=== PATIENT | female | born 1955 | race Caucasian/White ===

== ENCOUNTER 2018-06-21 10:09 | Outpatient (CLI) | payer OTHER, SELFPAY ==
[2018-06-21 11:58] LABS: Cholesterol 203 mg/dL (50-200); Glucose 86 mg/dL (70-100); HDL Cholesterol 51 mg/dL (40-60); LDL CHOLESTEROL 132 mg/dL (<100); Triglyceride 77 mg/dL (30-150)
== END 2018-06-21 10:29 ==
PROVIDERS: PCP Nurse Practitioner Family; Visit Provider Nurse Practitioner Family
DX: Z00.00 Encounter for general adult medical examination without abnormal findings (principal); Z13.1 Encounter for screening for diabetes mellitus; Z13.220 Encounter for screening for lipoid disorders
CPT/HCPCS: 36415; 80061; 82947; 83721

== ENCOUNTER 2018-07-11 12:00 | Outpatient (CLI) | payer OTHER, SELFPAY ==
--- NOTE | 2018-07-11 11:50 | DI.MAMMO_ITS ---
SYMPTOMS/DIAGNOSIS: SCREENING, Z12.31 MAMMOGRAMS: Mammograms were interpreted according to the usual protocol including computer analysis with CAD system, tomosynthesis and C view imaging. The breast tissue is of moderate radiodensity. There is no dominant mass. There are no suspicious calcifications. There has been no significant interval change when compared with prior images and there is no evidence of malignancy. SUMMARY: No evidence of malignancy, category 1. Yearly screening mammography is recommended. Breast density category B. SA ASSESSMENT OF FINDINGS: Negative. Category 1. Patient will receive a letter notifying them of these results. BI-RADS category B. There are scattered areas of fibroglandular density.
== END 2018-07-11 12:20 ==
PROVIDERS: PCP Nurse Practitioner Family; Visit Provider Nurse Practitioner Family
DX: Z12.31 Encounter for screening mammogram for malignant neoplasm of breast (principal)
CPT/HCPCS: 77063; 77067

== ENCOUNTER 2019-06-27 09:20 | Outpatient (REF) | payer OTHER, SELFPAY ==
--- NOTE | 2019-06-27 08:30 | PAPFT_PTH ---
PATIENT: Hannah Archibald LOC: [facility]#:[id number] AGE/SX: 64/F ROOM: RE06/27/[address]: Soham Marie : 1955 BED: DIS: 06/27/2019 SPEC #: [id number] RECD: 06/27/19 13:00 STATUS: DANIA RESong #: [id number] FRANCHESCA: 06/27/19 08:[address]: Soham Marie DEPT: [facility] Cytology RECD BY: Sarai Yeh ENTERED: 06/27/19 13:01 SP TYPE: PAPFT OTHR DR: Margoth Mario Tissues: 1 - CX/ENDOCX FOR PAP SMEARS Procedures: PAP THIN PREP/UVM Screening HPV DNA PROBE Comments: [id number]
== END 2019-06-27 09:40 ==
LOC: NCHCN 09:20
PROVIDERS: PCP Nurse Practitioner Family; Visit Provider Nurse Practitioner Family
DX: Z12.4 Encounter for screening for malignant neoplasm of cervix (principal); Z11.51 Encounter for screening for human papillomavirus (HPV); Z00.00 Encounter for general adult medical examination without abnormal findings
CPT/HCPCS: 88142; 87624

== ENCOUNTER 2020-01-16 03:10 | Outpatient (CLI) | payer OTHER, SELFPAY ==
[2020-01-19 19:06] LABS: Patient Race White; SARS-CoV-2 RNA Undetected (Undetected); SARS-CoV-2 Specimen Source Nasal
== END 2020-01-16 03:30 ==
PROVIDERS: PCP Nurse Practitioner Family; Visit Provider Nurse Practitioner Family
DX: Z11.59 Encounter for screening for other viral diseases (principal)
CPT/HCPCS: U0003

== ENCOUNTER 2020-06-28 14:49 | Outpatient (REF) | payer OTHER, SELFPAY ==
[2020-06-28 16:45] LABS: HCT 45.2 % (36.0-46.0); HGB 14.8 g/dL (11.2-15.7); MCH 30.7 pg (27.0-33.0); MCHC 32.7 % (32.0-36.0); MCV 93.8 fL (80-95); Platelet Count 272 10^3/uL (130-400); RBC 4.82 10^6/uL (3.93-5.22); RDW 12.2 % (11.7-14.6); RDW-SD 42.4 fL; WBC 4.66 10^3/uL (4.4-10.8)
[2020-06-28 17:16] LABS: ALT 42 U/L (14-59); AST 25 U/L (15-37); Albumin 3.6 g/dL (3.4-5.0); Alkaline Phosphatase 105 U/L (46-116); Anion Gap 7.2 mmol/L (3-11); BUN 12 mg/dL (7-18); Bilirubin, Total 0.3 mg/dL (0.2-1.0); CO2 27.8 mmol/L (21.0-32.0); CREATININE 0.8 mg/dL (0.55-1.02); Calcium 10.2 mg/dL (8.5-10.1); Chloride 106 mmol/L (98-107); Glucose 97 mg/dL (74-106); Potassium 4.2 mmol/L (3.5-5.1); Sodium 141 mmol/L (136-145); Total Protein 7.6 g/dL (6.4-8.2)
[2020-07-01 10:22] LABS: HIV-1/2 Ag & Ab Screen Negative (Negative)
== END 2020-06-28 14:50 | disposition home or self-care (01) ==
LOC: NCHCN 14:49
PROVIDERS: PCP Nurse Practitioner Family; Visit Provider Nurse Practitioner Family
DX: Z13.1 Encounter for screening for diabetes mellitus (principal); Z13.0 Encounter for screening for diseases of the blood and blood-forming organs and certain disorders involving the immune mechanism; Z11.4 Encounter for screening for human immunodeficiency virus [HIV]; Z68.28 Body mass index [BMI] 28.0-28.9, adult
CPT/HCPCS: 80053; 85027; 87389

== ENCOUNTER 2020-07-26 02:14 | Outpatient (CLI) | payer OTHER, SELFPAY ==
--- NOTE | 2020-07-26 | DI.MAMMO_ITS ---
EXAM: MG MAMMO SCREENING CLINICAL HISTORY: SCREENING,. TECHNIQUE: Bilateral full field digital CC and MLO mammographic images were obtained with 3D tomosyn thesis and utilizing computer aided detection (CAD). COMPARISON: Prior mammograms dating back to 2010, the most recent being June 2018. FINDINGS: There are no CAD designations There are no new spiculated masses nor malignant appearing microcalcification groups. There is no significant architectural distortion nor skin thickening-retraction. IMPRESSION: No radiographic evidence of malignancy. BI-RADS Category 1 - Negative Breast Density - Category B - Scattered areas of fibroglandular density Breast density Category C or D implies that the patient has dense breast tissue. Dense breast tissue can make it harder to find cancer on a mammogram. Dense breast tissue is also associated with an incr eased risk of breast cancer. This information about the result of the mammogram report was provided to the patient to raise their awareness. Use this report when you speak with the patient about their risks for breast cancer, which includes their family history. At that time, you may recommend additional screening tests (Ultrasoun d or MRI) as these tests may add significant information. A negative radiographic report should not delay biopsy if a dominant or clinically suspicious mass is present. Up to ten percent of cancers are not identified on mammography. A negative report may reinforce clinical impression. Adenosis and dense breasts may obscure an underlying neoplasm. False positive reports average 6 to 10%. Patient will receive a letter notifying them of these results.
== END 2020-07-26 02:34 ==
PROVIDERS: PCP Nurse Practitioner Family; Visit Provider Nurse Practitioner Family
DX: Z12.31 Encounter for screening mammogram for malignant neoplasm of breast (principal)
CPT/HCPCS: 77063; 77067

== ENCOUNTER 2021-12-02 17:14 | Outpatient (REF) | payer SELFPAY ==
[2021-12-02 18:30] LABS: C Diff PCR Negative (Negative)
== END 2021-12-02 17:15 | disposition home or self-care (01) ==
LOC: LBN 17:14
PROVIDERS: PCP Nurse Practitioner Family; Visit Provider Physician Assistant Medical
DX: R19.7 Diarrhea, unspecified (principal)
CPT/HCPCS: 87493

== ENCOUNTER → 2023-05-08 03:10 | Outpatient (CLI) | payer MEDICARE, OTHER, SELFPAY ==
--- NOTE | 2023-05-08 | DI.MAMMO_ITS ---
Exam(s) MAMMO SCREENING EXAM: MAMMO SCREENING CLINICAL HISTORY: SCREENING, Z12.31 TECHNIQUE: Bilateral full field digital CC and MLO mammographic images were obtained with 3D tomosyn thesis and utilizing computer aided detection (CAD). COMPARISON: Available for comparison. FINDINGS: Masses/Architectural Distortion: None seen. Microcalcifications: No suspicious pleomorphic-type are seen. Skin Thickening/Nipple Retraction: None. IMPRESSION: 1. No significant interval change with no specific features of malignancy noted. 2. Unless there is more urgent need, screening mammography is recommended, as per [place] [employer] guidelines. BI-RADS Category 1 - Negative Breast Density - Category B - Scattered areas of fibroglandular density Breast density category C or D implies that the patient has dense breast tissue. Dense breast tissue is very common and is not abnormal but dense breast tissue can make it harder to find cancer on a ma mmogram. Also, dense breast tissue may increase their breast cancer risk. This information about the result of the mammogram report was provided to the patient to raise their awareness. Use this report when you speak with the patient about their risks for breast cancer, which includes their family hist ory. At that time, you may recommend for more screening tests (Ultrasound or MRI) as they might be us eful based on their risk. A negative radiographic report should not delay biopsy if a dominant or clinically suspicious mass is present. Up to ten percent of cancers are not identified on mammography. A negative report may reinforce clinical impression. Adenosis and dense breasts may obscure an underlying neoplasm. False positive reports average 6 to 10%. Patient will receive a letter notifying them of these results.
== END ==
PROVIDERS: PCP Nurse Practitioner Family; Visit Provider Nurse Practitioner Family
DX: Z12.31 Encounter for screening mammogram for malignant neoplasm of breast (principal)
CPT/HCPCS: 77063; 77067

== ENCOUNTER → 2023-05-24 14:35 | Outpatient (BNVA) | payer MEDICARE, OTHER, SELFPAY | PROVIDERS: PCP Nurse Practitioner Family; Referring Provider Nurse Practitioner Family; Visit Provider Surgery | DX: Z12.11 Encounter for screening for malignant neoplasm of colon (principal) ==

== ENCOUNTER 2023-06-13 07:44 | Day surgery (SDC) | payer MEDICARE, OTHER, SELFPAY ==
--- NOTE | 2023-06-13 06:24 | W.ANESPRE ---
General Info Date of Service Date Performed: 06/13/23 Height: 5 ft 1.5 in Weight: 75.296 kg Body Mass Index (BMI): 30.8 Surgical Procedure: Operation Date: 06/13/23 09:35 Proposed Procedure Side Surgeon p Colonoscopy Erik Renee MD Meds Allergies and Home Medications Allergies Allergy/AdvReac Type Severity Reaction Status Date / Time Environmental Allergy Intermediate Other (See Uncoded 06/13/23 08:05 Comment) Home Medication Medication Instructions Recorded cholecalciferol (vitamin D3) 25 25 mcg PO DAILY 05/09/23 mcg (1,000 unit) capsule bisacodyl 5 mg tablet,delayed 5 mg PO ONCE #4 tabs 05/24/23 release (Dulcolax (bisacodyl)) polyethylene glycol 3350 17 17 g PO ONCE #238 grams 05/24/23 gram/dose oral powder Current Visit Medications: Current Medications Generic Name Dose Route Start Last Admin Trade Name Freq PRN Reason Stop Dose Admin Ringer's Solution 1,000 mls @ 80 mls/hr 06/13/23 06:00 IV 06/13/23 23:59 INFUSION ARNALDO IV Miscellaneous Supplies 1 each 06/13/23 06:00 Iv Access IV 06/13/23 23:59 DIRECTED ARNALDO Sodium Chloride 0 ml 06/13/23 06:00 Normal Saline Flush 10 Ml Syr IV 06/13/23 23:59 PRN PRN Sodium Chloride 0 ml 06/13/23 06:00 Normal Saline 10 Ml Vial IJ 06/13/23 23:59 DIRECTED PRN Sterile Water 0 ml 06/13/23 06:00 Water,Injection,Sterile 10 Ml Vial IJ 06/13/23 23:59 DIRECTED PRN PFSH Active Problems Active Problems: Problem Status Onset Code Family history of rectal cancer Z80.0 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 Melanocytic nevus D22.9 Heart murmur R01.1 Encounter for screening for other viral diseases Z11.59 Medical History Medical History Post-menopausal bleeding (08/03/14) Trochanteric bursitis of left hip Tubular adenoma Female cystocele Surgical History Surgical History Colonoscopy - MAC (05/16/17) Tobacco Smoking/Tobacco Use Status: Never Alcohol Alcohol Intake: never Substance Use Substance use: Never Substance use type: does not use Vital Signs and Lab Results Vital Signs Most Recent Vital Signs in EMR: Temp Pulse Resp BP Pulse Ox 36.7 C 73 16 139/79 98 06/13/23 08:06 06/13/23 08:06 06/13/23 08:06 06/13/23 08:06 06/13/23 08:06 Lab Results Blood Type / Crossmatch: No Data to Display Complete Blood Count: No Data to Display Complete Metabolic Panel: No Data to Display Liver Function Panel: No Data to Display Coagulation Panel: No Data to Display Cardiac Panel: No Data to Display Arterial Blood Gas: No Data to Display Venous Blood Gas: No Data to Display Pancreas Panel: No Data to Display Thyroid Panel: No Data to Display Infectious Disease: No Data to Display Blood Cultures: No Data to Display Toxicology Panel: No Data to Display Anesthesia Assessment and Plan Anesthesia History Personal History: No History of Anesthesia Complications Family History: No Family History of Anesthesia Complications Exercise Tolerance Exercise Tolerance: Metabolic Equivalents>4 Cardiac & Pulmonary Exam Cardiac Exam: Normal S1/S2 Heart Sounds Pulmonary Exam: Clear Bilateral Breath Sounds Implantable Cardiac Device Does patient have a Pacemaker or an ICD?: No Airway Exam Known Difficult Airway: No Mallampati Class: 3 Mouth Opening: Normal (> 3cm) Thyromental Distance: Greater than 3 cm Neck Range of Motion: Full ROM Neck Circumference: Normal Teeth Condition: Normal Dentition ASA Classification ASA Score: ASA 2 Emergency Case?: No NPO Status NPO Status: NPO Clears >2 hours, Solids >8 hours Anesthesia Plan Resuscitation Status: Full Code Anesthesia Technique: General Anesthesia Airway Planned: Natural Airway Monitors Used: Standard Monitors Preoperative Comments:: 68 yo female for colo. Sig PMHx: never smoker/EtOH. denies major. Previous Anes: - colo, fent/midaz, prop, natural airway, no issues.
[2023-06-13 08:06] VITALS: BP 139/79; PULSE 73; RESP 16; TEMP 36.7; O2SAT 98
[2023-06-13] MEDS: Lactated Ringers 1,000 ML 80 ML IV (08:20)
[2023-06-13 09:28] VITALS: BMI 30.8
--- NOTE | 2023-06-13 09:43 | W.COLOREPORT ---
Date of service: 06/13/23 Time of Service: 10:15 Colonoscopy Report Procedure Description: PROCEDURES PERFORMED: 1. Colonoscopy PREOPERATIVE DIAGNOSIS: Surveillance colonoscopy POSTOPERATIVE DIAGNOSIS: Normal colon, normal rectum SURGEON: Naty Renee MD INDICATION for procedure: The patient is a 68-year-old woman who has had multiple colonoscopies before because her mother had a basal cell anal cancer in her 70s. The patient has been on a 5-year plan because of this. She does not have a personal history of adenomatous polyps. Her last 2 scopes have not had adenomatous polyps. She has no symptoms. FINDINGS: Normal colon, normal rectum, no diverticular disease, no hemorrhoid disease, no polyps. SURVEILLANCE interval/FOLLOW-UP: I think a 10-year surveillance interval is acceptable at this time. To my knowledge anal or perianal basal cell cancer is a skin cancer and does not have an increased colorectal cancer risk. In my best understanding, her mother's condition does not place her at increased risk for colorectal cancer. SPECIMENS: None EBL: None COMPLICATIONS: None QUALITY of prep: Excellent Procedure in detail: The patient gave written consent and was in agreement with the indications, the potential risks as well as the benefits of the procedure. They taken to the endoscopy suite and laid in the left lateral decubitus position. A timeout was performed and anesthesia was administered which was tolerated well. I started the procedure. Digital rectal and visual examination was performed and grossly within normal limits. I took extra care, considering her mother's history, to visually inspect the perineum and perianal area and make sure there were no visible lesions of concern. A well-lubricated flexible colonoscope was then introduced and passed without any notable difficulty all the way to the cecum identified by the ileocecal valve and the appendiceal orifice. The scope was then slowly withdrawn with the above-noted findings. The patient tolerated the procedure well and was taken to the PACU in hemodynamically stable condition.
[2023-06-13 10:14] VITALS: BP 123/85; PULSE 75; RESP 16; TEMP 36; O2SAT 97
--- NOTE | 2023-06-13 10:18 | W.PM.DSUDISC ---
Date of service: 06/13/23 Time of Service: 10:18 Discharge Plan Disposition Patient Disposition: Home Condition: Good Discharge Details Attending Provider: Erik Renee Primary Care Provider: Kamryn East Home Meds and New Rx's Prescriptions: No Action bisacodyl [Dulcolax (bisacodyl)] 5 mg tablet,delayed release (DR/EC) 5 mg PO ONCE Qty: 4 0RF Rx Instructions: Take per colonoscopy instructions provided by ordering providers office polyethylene glycol 3350 17 gram/dose powder 17 g PO ONCE Qty: 238 0RF Rx Instructions: Take per colonoscopy instructions provided by ordering providers office cholecalciferol (vitamin D3) 25 mcg (1,000 unit) capsule 25 mcg PO DAILY Discharge Instructions Additional Instructions: FINDINGS: No polyps were found. No hemorrhoid disease. No diverticular disease. Your colon and rectum appear very healthy. I think you can repeat another colonoscopy in 10 years. Stand Alone Forms: Colonoscopy Post Instructions Activity:: Activity as Tolerated Diet:: As Tolerated
--- NOTE | 2023-06-13 10:19 | W.ANESPOSTOP ---
Postoperative Evaluation Date, Time and Location Date Performed: 06/13/23 Time Performed: 10:20 Patient Location: Day Surgery Unit Vital Signs Most Recent Imported Vital Signs: Most Recent Vital Signs Temp Pulse Resp BP Pulse Ox 36 C L 75 16 123/85 97 06/13/23 10:14 06/13/23 10:14 06/13/23 10:14 06/13/23 10:14 06/13/23 10:14 Pain Score Most Recent Pain Score: Most Recent Pain Score Pain Level 0 06/13/23 10:14 Assessment Mental Status: Awake (Alert & Oriented to Patient Baseline) Airway and Respiratory Function: Patent airway with normal (patient baseline) respiratory exam Cardiovascular Function: Hemodynamically Stable Hydration Status: Adequately Hydrated Nausea & Vomiting: No Nausea or Vomiting Pain: Pt. Denies Any Pain Peripheral Nerve Block: Patient did not receive a nerve block
[2023-06-13 10:40] VITALS: BP 142/94; PULSE 56; RESP 16; TEMP 36.2; O2SAT 100
== END 2023-06-13 11:00 | disposition home or self-care (01) ==
PROVIDERS: PCP Nurse Practitioner Family; Visit Provider Student in an Organized Health Care Education/Training Program
PROC: 0DJD8ZZ Inspection of Lower Intestinal Tract, Via Natural or Artificial Opening Endoscopic (ICD-10-PCS; CPT 45378; principal; 2023-06-13 09:30)
DX: Z12.11 Encounter for screening for malignant neoplasm of colon (principal)
CPT/HCPCS: G0121; 00123; J2704

== ENCOUNTER 2024-08-06 17:22 | Outpatient (REF) | payer MEDICARE, OTHER, SELFPAY ==
[2024-08-06 15:28] LABS: Abs Immature Grans 0.01 10^3/uL (0.0-0.06); Absolute Basophil Count 0.04 10^3/uL (0.0-0.2); Absolute Eosinophil Count 0.23 10^3/uL (0.0-0.7); Absolute Lymphocyte Count 1.34 10^3/uL (1.2-3.4); Absolute Neutrophil Count 3.33 10^3/uL (1.2-6.7); Basophils % 0.7 %; Eosinophils % 4.3 %; HGB 14.4 g/dL (11.2-15.7); Immature Grans % 0.2 %; MCH 31.2 pg (27.0-33.0); MCHC 33.5 % (32.0-36.0); MCV 93 fL (80-95); MPV 9.8 fL (8.0-11.0); Monocytes % 7.5 %; Neutrophils % 62.3 %; Platelet Count 284 10^3/uL (130-400); RBC 4.61 10^6/uL (3.93-5.22); RDW 12.5 % (11.7-14.6); RDW-SD 42.8 fL; WBC 5.35 10^3/uL (4.4-10.8)
[2024-08-06 15:58] LABS: ALT 34 U/L (14-59); AST 22 U/L (15-37); Albumin 3.6 g/dL (3.4-5.0); Alkaline Phosphatase 114 U/L (46-116); Anion Gap 7.7 mmol/L (3-11); BUN 19 mg/dL (7-18); Bilirubin, Total 0.3 mg/dL (0.2-1.0); CO2 28.3 mmol/L (21.0-32.0); CREATININE 0.9 mg/dL (0.55-1.02); Calcium 10.6 mg/dL (8.5-10.1); Chloride 108 mmol/L (98-107); Estimated GFR 70.07 (mL/min/1.73m2); Glucose 83 mg/dL (74-106); Potassium 4.4 mmol/L (3.5-5.1); Sodium 144 mmol/L (136-145); TSH (W/Ref FT4) 1.41 uIU/mL (0.36-3.74); Total Protein 7.3 g/dL (6.4-8.2)
[2024-08-06 16:07] LABS: Hemoglobin A1C 5.3 % (<5.7)
[2024-08-06 16:16] LABS: Calculated LDL 164 mg/dL (<100); Cholesterol 251 mg/dL (<200); HDL Cholesterol 68 mg/dL (>or=50); Triglyceride 97 mg/dL (<150)
== END 2024-08-06 17:23 | disposition home or self-care (01) ==
LOC: NCHCN 17:22
PROVIDERS: Visit Provider Nurse Practitioner Family
DX: Z13.220 Encounter for screening for lipoid disorders (principal); Z13.1 Encounter for screening for diabetes mellitus
CPT/HCPCS: 80053; 80061; 83036; 84443; 85025

== ENCOUNTER 2024-10-02 00:35 | Outpatient (CLI) | payer MEDICARE, OTHER, SELFPAY ==
--- NOTE | 2024-10-02 | DI.MAMMO_ITS ---
Exam(s) MAMMO SCREENING EXAM: MAMMO SCREENING CLINICAL HISTORY: Screening, Z12.31 TECHNIQUE: Bilateral full field digital CC and MLO mammographic images were obtained with 3D tomosynthesis and utilizing computer aided detection (CAD). COMPARISON: Comparison is made with prior examinations. FINDINGS: Masses/Architectural Distortion: No suspicious masses or areas of architectural distortion are present. Microcalcifications: No suspicious pleomorphic-type are seen. Skin Thickening/Nipple Retraction: None. IMPRESSION: 1. No significant interval change with no specific features of malignancy noted. 2. Unless there is more urgent need, screening mammography is recommended, as per [place] [employer] guidelines. BI-RADS Category 1 - Negative Breast Density - Category B - There are scattered areas of fibroglandular density. Breast density Category C or D implies that the patient has dense breast tissue. Dense breast tissue can make it harder to find cancer on a mammogram. Dense breast tissue is also associated with an increased risk of breast cancer. This information about the result of the mammogram report was provided to the patient to raise their awareness. Use this report when you speak with the patient about their risks for breast cancer, which includes their family history. At that time, you may recommend additional screening tests (Ultrasound or MRI) as these tests may add significant information. A negative radiographic report should not delay biopsy if a dominant or clinically suspicious mass is present. Up to ten percent of cancers are not identified on mammography. A negative report may reinforce clinical impression. Adenosis and dense breasts may obscure an underlying neoplasm. False positive reports average 6 to 10%. Patient will receive a letter notifying them of these results.
--- NOTE | 2024-10-02 10:10 | DI.DEXA_ITS ---
Exam(s) XR DEXA BONE DENSITY W/WO GREER EXAM: XR DEXA BONE DENSITY W/WO GREER CLINICAL HISTORY: Asymptomatic menopausal state, Z78.0; screening for osteoporosis TECHNIQUE: COMPARISON: DX DEXA BONE DENSITY WITH GREER from 12/13/2010 FINDINGS: Lateral Spine Image: Unremarkable. No compression deformities identified. Left hip: Total T-Score: -1.4. This compares to 0.0 on the prior examination. Total Z-Score: -0.1 T- and Z-scores: Findings are consistent with osteopenia. Lumbar Spine: Total T-Score: -1.0. This compares to 0.4 on the prior examination. Total Z-Score: 0.9 T- and Z-scores: Within normal limits. IMPRESSION: No evidence of osteoporosis.
== END 2024-10-02 00:55 ==
LOC: DI 00:35
PROVIDERS: Visit Provider Nurse Practitioner Family
DX: Z13.820 Encounter for screening for osteoporosis (principal); Z78.0 Asymptomatic menopausal state; Z12.31 Encounter for screening mammogram for malignant neoplasm of breast
CPT/HCPCS: 77063; 77067; 77080